=== PATIENT | male | born 1945 | race Hispanic/Latino ===

== ENCOUNTER 2019-06-10 05:28 | Day surgery (SDC) | payer OTHER, MEDICARE ==
[~2019-06-10] VITALS: Ht 172.7 cm; Wt 87.5 kg
[2019-06-10] VITALS (7 sets, daily range): BP systolic 108–145; BP diastolic 57–75
[~2019-06-10 05:28] MED LIST: PRAV20TA4 PO; TAMS0.4C32 PO
[2019-06-10] MEDS ORDERED: SODIUM CHLORIDE 0.9% 1000ML 1,000 ML IV ONE (05:39)
[2019-06-10] MEDS ORDERED: PROSVENT (07:11)
[2019-06-10] MEDS ORDERED: OLOP2.5D6 OU (07:11)
[2019-06-10] MEDS ORDERED: AMLO10TA7 PO (07:11)
[2019-06-10] MEDS ORDERED: INSLAN SQ (07:11)
[2019-06-10] MEDS ORDERED: BRIM5DRO OU (07:11)
[2019-06-10] MEDS ORDERED: ACET-66 PO (07:11)
[2019-06-10] MEDS ORDERED: METO100T14 PO (07:11)
[2019-06-10] MEDS ORDERED: CLOP75TA14 PO (07:11)
[2019-06-10] MEDS ORDERED: TRAV5DRO OP (07:11)
[2019-06-10] MEDS ORDERED: FURO20TA4 PO (07:11)
[2019-06-10] MEDS ORDERED: PROPOFOL 10 MG/ML 20ML VIAL IV ONE (07:32)
== END 2019-06-10 08:37 | disposition home or self-care (01) ==
LOC: DAH 05:28
PROVIDERS: ATTEND Internal Medicine
DX: D12.3 Benign neoplasm of transverse colon (principal); D12.2 Benign neoplasm of ascending colon; D12.0 Benign neoplasm of cecum; D12.4 Benign neoplasm of descending colon; D12.5 Benign neoplasm of sigmoid colon; K57.30 Diverticulosis of large intestine without perforation or abscess without bleeding; K29.50 Unspecified chronic gastritis without bleeding; K22.8 Other specified diseases of esophagus; K44.9 Diaphragmatic hernia without obstruction or gangrene; K31.89 Other diseases of stomach and duodenum; D50.9 Iron deficiency anemia, unspecified; K64.0 First degree hemorrhoids; E78.5 Hyperlipidemia, unspecified; E11.22 Type 2 diabetes mellitus with diabetic chronic kidney disease; I12.9 Hypertensive chronic kidney disease with stage 1 through stage 4 chronic kidney disease, or unspecified chronic kidney disease; N18.4 Chronic kidney disease, stage 4 (severe); N40.0 Benign prostatic hyperplasia without lower urinary tract symptoms; I25.10 Atherosclerotic heart disease of native coronary artery without angina pectoris; Z86.73 Personal history of transient ischemic attack (TIA), and cerebral infarction without residual deficits; Z90.49 Acquired absence of other specified parts of digestive tract
CPT/HCPCS: 43239; 45380; 45381; 45385; 82948 ×2; 88305; 93005; A4606; J2704; J7030

== ENCOUNTER 2019-12-31 12:51 | Inpatient (IN) | payer OTHER, MEDICARE ==
[~2019-12-31] VITALS: Ht 172.7 cm; Wt 84.1 kg
[~2019-12-31 12:51] MED LIST changes: +ACET-66 PO; +AMLO10TA7 PO; +BRIM5DRO OU; +CLOP75TA14 PO; +FURO20TA4 PO; +INSLAN SQ; +METO100T14 PO; +OLOP2.5D6 OU; +PROSVENT; +TRAV5DRO OP
[2019-12-31 13:20] LABS: APPEARANCE,URINE Clear (CLEAR); BILIRUBIN,URINE Negative (NEGATIVE); COLOR,URINE Yellow (YELLOW); GLUCOSE, URINE (UA) Negative (NEGATIVE); KETONES,URINE Negative (NEGATIVE); LEUKOCYTE ESTERASE ,URINE Trace (NEGATIVE); NITRATE,URINE Positive (NEGATIVE); OCCULT BLOOD,URINE Trace (NEGATIVE); PH,URINE 5.5 (5.0-8.0); PROTEIN,URINE >=1000 mg/dL (NEGATIVE)
[2019-12-31 13:23] LABS: BASOPHILS % (AUTO) 0.9 % (0.0-5.0); EOSINOPHILS % (AUTO) 0.7 % (0.0-8.0); HEMATOCRIT 38.3 % (42-54); MEAN CORPUSCULAR HEMOGLOBIN 28.9 pg (27.0-33.0); MEAN CORPUSCULAR HGB CONC 32.6 g/dL (32.0-36.0); MEAN CORPUSCULAR VOLUME 88.7 fL (79-99); MONOCYTES % (AUTO) 13.7 % (3.0-13.0); NEUTROPHILS % (AUTO) 65.7 % (40.0-77.0); PLATELET COUNT (AUTO) 148 K/uL (130-400); RED BLOOD CELL COUNT(AUTO) 4.32 MIL/uL (4.50-6.20); RED CELL DISTRIBUTION WIDTH 12.8 % (11.0-15.5); WHITE BLOOD COUNT (AUTO) 4.2 K/uL (4.8-10.8)
[2019-12-31 13:24] LABS: OCCULT BLOOD STOOL SINGLE ONLY POSITIVE (NEGATIVE)
[2019-12-31 13:36] LABS: CREATININE 4.4 mg/dL (0.5-1.5); POTASSIUM 3.7 mmol/L (3.5-5.1)
[2019-12-31 13:43] LABS: ALBUMIN 3.2 g/dL (3.5-5.0); BILIRUBIN,TOTAL 0.3 mg/dL (0.2-1.0); TOTAL PROTEIN, SERUM 7.3 g/dL (6.0-8.3)
[2019-12-31 13:45] LABS: AMORPHOUS SEDIMENT,UR Few /LPF (None Seen); BACTERIA,URINE Few /HPF (None Seen); MUCUS,URINE Rare LPF (None Seen); RBC,URINE 0-1 /HPF (0-1); SQUAMOUS EPITHELIAL CELL,UR 0-2 /HPF (0-2); TRANSITIONAL EPI CELLS,URINE Few /HPF (None Seen)
[2019-12-31] MEDS ORDERED: CEFEPIME HCL 1 GM VIAL ONE (17:16)
[2019-12-31] MEDS ORDERED: METRONIDAZOLE 500MG/100ML BAG 100 ML ONE (17:16)
[2019-12-31] MEDS ORDERED: SODIUM CHLORIDE 0.9% 1000ML 1,000 ML IV ONE (17:17)
[2019-12-31] MEDS ORDERED: SODIUM CHLORIDE 0.9% 100 ML IV ONE (17:17)
[2019-12-31] MEDS: CEFEPIME HCL 1 GM VIAL IVP SCH (18:00)
--- NOTE | 2019-12-31 18:09 | NUR ---
Paged [facility] to request BP PRN medications as BP reported by ER started at 188/97. Per Rhys Choe RN, patient took home medication metoprolol 100 mg PO and nefedipine 60 mg PO at 17:09 and blood pressure has decreased to 170/83.
[2019-12-31] MEDS ORDERED: HYDRALAZINE HCL 20 MG/ML VIAL ONE (18:41)
[2019-12-31] MEDS: SODIUM CHLORIDE 0.9% 1000ML 1,000 ML IV SCH (18:46)
[2019-12-31] MEDS ORDERED: UBID1CAP56 PO (18:46)
[2019-12-31] MEDS ORDERED: TRAV2.5D OD (18:46)
[2019-12-31] MEDS ORDERED: ASPI-555 PO (18:46)
[2019-12-31] MEDS ORDERED: PROS (18:46)
[2019-12-31] MEDS ORDERED: FURO40TA5 PO (18:46)
[2019-12-31] MEDS ORDERED: PRAV20TA4 PO (18:46)
[2019-12-31] MEDS: METRONIDAZOLE 500MG/100ML BAG 100 ML IVPB SCH (18:46)
[2019-12-31] MEDS ORDERED: NIFE60TA81 PO (18:46)
[2019-12-31] MEDS ORDERED: METO100T14 PO (18:46)
[2019-12-31] MEDS ORDERED: BRIM5DRO OP (18:47)
[2019-12-31 18:56] VITALS: BP 167/73
[2019-12-31] MEDS ORDERED: HYDRALAZINE HCL 20 MG/ML VIAL IV PRN (19:00)
[2019-12-31] MEDS: LATANOPROST 2.5 ML DROPS OD SCH (20:40)
[2019-12-31] MEDS: ATORVASTATIN CALCIUM 10 MG TABLET PO SCH (20:40)
[2019-12-31] MEDS: TIMOLOL PO SCH (20:41)
[2019-12-31] MEDS: BRIMONIDINE TARTRATE PO SCH (20:41)
[2019-12-31] MEDS: METOPROLOL TARTRATE 50 MG TAB PO SCH (21:00)
[2019-12-31] MEDS: NIFEDIPINE ER 30 MG TAB PO SCH (21:00)
[2020-01-01] VITALS (7 sets, daily range): BP systolic 115–145; BP diastolic 55–77
[2020-01-01] MEDS: METRONIDAZOLE 500MG/100ML BAG 100 ML IVPB SCH ×3 (00:54→16:35)
[2020-01-01] MEDS: SODIUM CHLORIDE 0.9% 1000ML 1,000 ML IV SCH ×3 (03:00→09:22)
[2020-01-01] MEDS: CEFEPIME HCL 1 GM VIAL IVP SCH ×2 (05:20→18:38)
[2020-01-01] MEDS: TIMOLOL PO SCH ×2 (09:00→21:00)
[2020-01-01] MEDS: BRIMONIDINE TARTRATE PO SCH ×2 (09:00→21:00)
[2020-01-01] MEDS: UBIDECARENONE PO SCH (09:00)
[2020-01-01] MEDS: VIT E ACETATE PO SCH (09:00)
[2020-01-01] MEDS: ASPIRIN 81 MG EC TAB PO SCH (09:21)
[2020-01-01] MEDS: NIFEDIPINE ER 30 MG TAB PO SCH ×2 (09:21→21:48)
[2020-01-01] MEDS: METOPROLOL TARTRATE 50 MG TAB PO SCH ×2 (09:22→21:48)
[2020-01-01] MEDS: FUROSEMIDE 40 MG TABLET PO SCH (09:22)
--- NOTE | 2020-01-01 13:11 | NUR ---
Called Dr. Pastor's office to request page for Dr. Pastor to notify of consult for renal insufficiency. Radha to page Dr. Pastor.
--- NOTE | 2020-01-01 14:20 | NUR ---
Dr. Pastor paged to notify of consult. Pending response.
--- NOTE | 2020-01-01 16:39 | NUR ---
cm note met with patient and states resides at home with spouse, ambulates with cane, spouse assists as needed. no provider, attends Adult daycare M-F 7a-2pm. daughter transports to , provided requested info on [facility], for possible provider, and handicap accessible bath, referral made to [facility]. states o dc needs. dc plan is back home at time of dc. Addendum: 01/01/20 at 1643 by REESE DE LA PAZ CM Amended: Links added.
[2020-01-01] MEDS: ATORVASTATIN CALCIUM 10 MG TABLET PO SCH (21:48)
[2020-01-01] MEDS: LATANOPROST 2.5 ML DROPS OD SCH (21:50)
[2020-01-02] MEDS: METRONIDAZOLE 500MG/100ML BAG 100 ML IVPB SCH ×3 (01:20→17:39)
[2020-01-02 04:16] VITALS: BP 119/57
[2020-01-02 05:09] LABS: CREATININE 3.9 mg/dL (0.5-1.5); POTASSIUM 3.3 mmol/L (3.5-5.1)
[2020-01-02 05:12] LABS: HEMATOCRIT 32.8 % (42-54); MEAN CORPUSCULAR HEMOGLOBIN 29.7 pg (27.0-33.0); MEAN CORPUSCULAR HGB CONC 33.8 g/dL (32.0-36.0); MEAN CORPUSCULAR VOLUME 87.7 fL (79-99); PLATELET COUNT (AUTO) 135 K/uL (130-400); RED BLOOD CELL COUNT(AUTO) 3.74 MIL/uL (4.50-6.20); WHITE BLOOD COUNT (AUTO) 4.1 K/uL (4.8-10.8)
[2020-01-02 05:25] LABS: BAND NEUTROPHILS % (MANUAL) 16 % (0-2); LYMPHOCYTES % (MANUAL) 20 % (22-44); MAN.DIFF COMMENT-IMPRESSION MANUAL DIFFERENTIAL; MONOCYTES % (MANUAL) 8 % (2-9); PLATELET MORPHOLOGY COMMENT ADEQUATE; SEGMENTED NEUTROPHILS % 56 % (40-70)
[2020-01-02] MEDS: CEFEPIME HCL 1 GM VIAL IVP SCH ×2 (06:17→17:39)
[2020-01-02 07:30] VITALS: BP 133/61
[2020-01-02] MEDS: METOPROLOL TARTRATE 50 MG TAB PO SCH ×2 (07:39→21:00)
[2020-01-02] MEDS: ASPIRIN 81 MG EC TAB PO SCH (07:39)
[2020-01-02] MEDS: NIFEDIPINE ER 30 MG TAB PO SCH ×2 (07:39→21:53)
[2020-01-02] MEDS: FUROSEMIDE 40 MG TABLET PO SCH (07:40)
[2020-01-02] MEDS: SODIUM CHLORIDE 0.9% 1000ML 1,000 ML IV SCH ×2 (07:40→19:00)
[2020-01-02] MEDS: VIT E ACETATE PO SCH (09:00)
[2020-01-02] MEDS: UBIDECARENONE PO SCH (09:00)
[2020-01-02] MEDS: BRIMONIDINE TARTRATE PO SCH ×2 (09:00→21:00)
[2020-01-02] MEDS: TIMOLOL PO SCH ×2 (09:00→21:00)
[2020-01-02 11:00] VITALS: BP 131/66
[2020-01-02 16:00] VITALS: BP 115/53
--- NOTE | 2020-01-02 17:25 | NUR ---
[id number] patient signed IM Letter, I faxed IM Letter to [id number] and placed in chart under consent tab
--- NOTE | 2020-01-02 18:00 | NUR ---
DR. MEJIA HERE, AND SPOKE WITH PT .REGARDING LEVEL OF HIS KIDNEYS , , LABS ORDER FOR AM CONT WITH IVF .
[2020-01-02 19:25] VITALS: BP 121/61
[2020-01-02] MEDS: LATANOPROST 2.5 ML DROPS OD SCH (21:00)
[2020-01-02] MEDS: ATORVASTATIN CALCIUM 10 MG TABLET PO SCH (21:53)
[2020-01-02 23:25] VITALS: BP 135/55
[2020-01-03] MEDS: METRONIDAZOLE 500MG/100ML BAG 100 ML IVPB SCH ×3 (01:03→17:31)
[2020-01-03 03:50] VITALS: BP 133/60
[2020-01-03 04:39] LABS: HEMATOCRIT 35.8 % (42-54); MEAN CORPUSCULAR HEMOGLOBIN 28.7 pg (27.0-33.0); MEAN CORPUSCULAR HGB CONC 33.2 g/dL (32.0-36.0); MEAN CORPUSCULAR VOLUME 86.5 fL (79-99); PLATELET COUNT (AUTO) 176 K/uL (130-400); RED BLOOD CELL COUNT(AUTO) 4.14 MIL/uL (4.50-6.20); WHITE BLOOD COUNT (AUTO) 5.6 K/uL (4.8-10.8)
[2020-01-03 05:03] LABS: CREATININE 4.2 mg/dL (0.5-1.5); PHOSPHORUS 4.3 mg/dL (2.5-4.9); POTASSIUM 3.5 mmol/L (3.5-5.1)
[2020-01-03] MEDS: CEFEPIME HCL 1 GM VIAL IVP SCH ×2 (06:02→18:52)
[2020-01-03] MEDS: SODIUM CHLORIDE 0.9% 1000ML 1,000 ML IV SCH ×3 (06:02→20:23)
[2020-01-03 07:30] VITALS: BP 131/63
[2020-01-03] MEDS: ASPIRIN 81 MG EC TAB PO SCH (08:13)
[2020-01-03] MEDS: METOPROLOL TARTRATE 50 MG TAB PO SCH ×2 (08:13→20:21)
[2020-01-03] MEDS: NIFEDIPINE ER 30 MG TAB PO SCH ×2 (08:13→20:21)
[2020-01-03] MEDS: TIMOLOL PO SCH ×2 (08:32→20:57)
[2020-01-03] MEDS: UBIDECARENONE PO SCH (08:32)
[2020-01-03] MEDS: BRIMONIDINE TARTRATE PO SCH ×2 (08:32→20:57)
[2020-01-03] MEDS: VIT E ACETATE PO SCH (08:32)
[2020-01-03 11:00] VITALS: BP 132/57
[2020-01-03 16:00] VITALS: BP 128/60
[2020-01-03] MEDS: SODIUM BICARBONATE 650 MG TAB PO SCH (17:37)
[2020-01-03 19:55] VITALS: BP 137/69
[2020-01-03] MEDS: ATORVASTATIN CALCIUM 10 MG TABLET PO SCH (20:21)
[2020-01-03] MEDS: LATANOPROST 2.5 ML DROPS OD SCH (20:57)
[2020-01-03 23:59] VITALS: BP 141/63
[2020-01-04] MEDS: METRONIDAZOLE 500MG/100ML BAG 100 ML IVPB SCH ×2 (01:04→09:00)
[2020-01-04 04:05] VITALS: BP 135/64
[2020-01-04] MEDS: CEFEPIME HCL 1 GM VIAL IVP SCH (06:02)
[2020-01-04] MEDS: SODIUM CHLORIDE 0.9% 1000ML 1,000 ML IV SCH (06:03)
[2020-01-04 06:14] LABS: BASOPHILS % (AUTO) 0.6 % (0.0-5.0); EOSINOPHILS % (AUTO) 2.8 % (0.0-8.0); HEMATOCRIT 33.5 % (42-54); LYMPHOCYTES % (AUTO) 33.4 % (21.0-51.0); MEAN CORPUSCULAR HGB CONC 33.7 g/dL (32.0-36.0); MEAN CORPUSCULAR VOLUME 85.9 fL (79-99); MONOCYTES % (AUTO) 10.5 % (3.0-13.0); NEUTROPHILS % (AUTO) 52.5 % (40.0-77.0); PLATELET COUNT (AUTO) 167 K/uL (130-400)
[2020-01-04 06:26] LABS: CREATININE 4.1 mg/dL (0.5-1.5); POTASSIUM 3.3 mmol/L (3.5-5.1)
--- NOTE | 2020-01-04 06:50 | NUR ---
Nursing Note-Paged Paged about lab values, pending call back
[2020-01-04] MEDS ORDERED: SODI650T PO (07:53)
[2020-01-04] MEDS ORDERED: POTASSIUM CHLORIDE 20 MEQ ERTAB PO SCH (08:00)
[2020-01-04 08:22] VITALS: BP 142/65
[2020-01-04] MEDS: ASPIRIN 81 MG EC TAB PO SCH (08:55)
[2020-01-04] MEDS: SODIUM BICARBONATE 650 MG TAB PO SCH (08:55)
[2020-01-04] MEDS: NIFEDIPINE ER 30 MG TAB PO SCH (08:55)
[2020-01-04] MEDS: METOPROLOL TARTRATE 50 MG TAB PO SCH (08:55)
[2020-01-04] MEDS: UBIDECARENONE PO SCH (09:02)
[2020-01-04] MEDS: BRIMONIDINE TARTRATE PO SCH (09:02)
[2020-01-04] MEDS: TIMOLOL PO SCH (09:02)
[2020-01-04] MEDS: VIT E ACETATE PO SCH (09:02)
[2020-01-04 12:05] VITALS: BP 138/63
== END 2020-01-04 15:28 | disposition home or self-care (01) | DRG 683 ==
LOC: EDH 12:51 → OBSVTOIN 15:51 → EDHIP 15:51 → 4DH 18:15
PROVIDERS: ADMIT Internal Medicine Critical Care Medicine; ATTEND Internal Medicine Critical Care Medicine
DX: N17.9 Acute kidney failure, unspecified (principal); N39.0 Urinary tract infection, site not specified; I12.0 Hypertensive chronic kidney disease with stage 5 chronic kidney disease or end stage renal disease; E86.0 Dehydration; B96.89 Other specified bacterial agents as the cause of diseases classified elsewhere; N18.5 Chronic kidney disease, stage 5; E11.22 Type 2 diabetes mellitus with diabetic chronic kidney disease; Z79.02 Long term (current) use of antithrombotics/antiplatelets; Z79.4 Long term (current) use of insulin; Z79.82 Long term (current) use of aspirin; Z86.718 Personal history of other venous thrombosis and embolism; Z87.891 Personal history of nicotine dependence; Z91.19 Patient's noncompliance with other medical treatment and regimen; Z79.899 Other long term (current) drug therapy; Z90.49 Acquired absence of other specified parts of digestive tract; Z98.49 Cataract extraction status, unspecified eye; H54.7 Unspecified visual loss; D63.1 Anemia in chronic kidney disease; E78.5 Hyperlipidemia, unspecified; A08.4 Viral intestinal infection, unspecified
CPT/HCPCS: 36415; 80048; 80053; 80069; 81001; 82270; 82550; 82948; 84484; 85025; 85027; 87046; 87077; 87088; 87186; 87324; 97039; 99291; G0378; J0360; J0692; J3490; J7030